=== PATIENT | female | born 1995 | race African-American/Black ===

== ENCOUNTER 2016-09-05 19:05 | Emergency (ER) | payer SELFPAY ==
[~2016-09-05] VITALS: Ht 152.4 cm; Wt 58.5 kg
[2016-09-05 19:08] VITALS: BP 118/64
[2016-09-05] MEDS ORDERED: DIPH,PERTUSS(ACELL),TET VAC/PF 0.5 ML IM-VACC ONE (20:00)
== END 2016-09-05 21:58 | disposition left against medical advice (07) ==
LOC: ED 21:52
DX: O26.891 Other specified pregnancy related conditions, first trimester (principal); R10.12 Left upper quadrant pain
CPT/HCPCS: 99281